=== PATIENT | male | born 1955 | race Caucasian/White ===

== ENCOUNTER 2017-01-02 10:50 | Emergency (ER) | payer OTHER ==
[~2017-01-02] VITALS: Ht 177.8 cm; Wt 56.9 kg
[~2017-01-02 10:50] MED LIST: ASPI81TA2 PO; ATOR80TA76 PO; INSU100C14 SQ; INSU100V12 SQ; OMEP-122 PO
[2017-01-02 10:52] VITALS: Ht 177.8 cm; Wt 56.9 kg
--- OUTSIDE RECORDS SUMMARY | 2017-01-02 10:55 | XMS REPORT | Continuity of Care Document ---
Author Author [facility] Organization [facility] Address Unknown Phone Unavailable Support Name Relationship Address Phone KRISTINEJOANNE QUEZADA Caregiver [address] [place] [address] Unavailable WILLIAM PETERSON Next Of Kin [address] [place] [address] Insurance Providers Guarantor Valente Peterson Address [address] [place] [address] Email DENIED10-28-16 Payer [facility] Policy Number [id number] Subscriber's Name Valente Peterson Relationship 19 Self Chief Complaint and Reason for Visit Chief Complaint Dizzy Reason for Visit Orthostatic hypotension Problems Past Problems Medical Problem Onset Date Dizziness Unknown Orthostatic hypotension Unknown Medications Current Home Medications Medication Dose Units Route Directions Days Qty Instructions Start Date Aspirin 81 Mg Tab.chew 81 Mg Oral Daily for Cad 100 10/28/16 Atorvastatin Calcium 80 Mg Tablet 1 Tab Oral Bedtime 10/27/16 Insulin Detemir (Levemir) 100 Unit/Ml Inj 20 Unit Sub-Q Qd Insulin Lispro (Humalog) 100 Unit/1 Ml Cartridge 9 Unit Sub-Q Twice A Day 10/27/16 Omeprazole 20 Mg Tablet.dr 20 Mg Oral Before Breakfast Take 1 tablet , by mouth, one time a day with breakfast. 10/27/16 Past Home Medications Medication Directions Ordered Status Lisinopril 20 Mg Tablet, 30 Mg Oral Daily for Hypertension 10/27/16 Discontinued Social History Social History Problem Response Recorded Date/Time Onset Date Status Hx Substance Use No 10/28/2016 4:10pm Not Applicable Not Applicable Hx Alcohol Use No 10/28/2016 4:10pm Not Applicable Not Applicable Has the pt used tobacco in the last 12 months Yes 10/27/2016 6:20pm Not Applicable Not Applicable Query Response Start Date Stop Date Smoking Status Unknown if ever smoked Hospital Discharge Instructions No hospital discharge instructions. Plan of Care Discharge Date 10/28/16 6:00pm Disposition 01 DISCHARGED HOME, SELF-CARE Condition at Discharge Stable Instructions/Education Provided Hypotension (ED) Prescriptions See Medication Section Additional Instructions/Education Continue to hold the Lisinopril. Make sure that you are drinking plenty of fluids at home. I do want you to follow up with the [facility] this week for with Dr Bentley with cardiology. His office number is [phone]. Care Plan and Goals Physician Care Plan Problem:Hypotension Goal: Follow up with primary care provider Instructions: Take medications and follow care plan as discussed/written Functional Status No functional status results. Allergies, Adverse Reactions, Alerts Allergen Type Severity Reaction Status Last Updated No Known Drug Allergies Allergy Unknown Active 10/28/16 Immunizations Query Response on File Recorded Date/Time Hx Influenza Vaccination N NOT THIS YEAR 10/27/16 6:20pm Hx Pneumococcal Vaccination No 10/27/16 6:20pm Hx Influenza Vaccination N NOT THIS YEAR 10/27/16 6:20pm Vital Signs Acute Vital Signs Vital Response Date/Time Temperature (Fahrenheit) 98.8 deg F (96.8 - 99.1) 10/28/2016 6:04pm Temperature (Calculated Celsius) 37.20297 degrees C (36.0 - 37.3) 10/28/2016 6:04pm Pulse Rate (adult) 52 bpm (60 - 100) 10/28/2016 6:04pm Respiratory Rate 14 breaths/min (10 - 20) 10/28/2016 6:04pm O2 Sat by Pulse Oximetry 96 % (90 - 100) 10/28/2016 6:04pm Oxygen Delivery Method Room Air 10/28/2016 8:05am Blood Pressure 130/63 mm Hg 10/28/2016 6:04pm Blood Pressure Source Automatic Cuff 10/28/2016 8:05am Height (Feet) 5 feet 10/28/2016 3:50pm Height (Inches) 10.00 inches 10/28/2016 3:50pm Weight (Kilograms) 67.300 kg 10/28/2016 3:50pm Body Mass Index (BMI) 21.0 10/28/2016 3:50pm Results Laboratory Results Test Name Result Units Flags Reference Collection Date/Time Result Date/ Time Comments Prothromb Time International Ratio 1.09 H 0.76-1.04 10/27/2016 2:48pm 10/27/2016 5:34pm THERAPUTIC RANGE=2.00-3.00 FOR ANTI-THROMBOSIS THERAPUTIC RANGE=2.50-3.50 FOR IMPLANTED VALVE D-Dimer < 150 NG/ML 0-230 10/27/2016 8:11pm 10/27/2016 9:11pm <230 NG/ ML D-DU=PRESUMPTIVE NEGATIVE FOR PE OR DVT >230 NG/ML D-DU=ADDITIONAL EVAL FOR PE OR DVT RECOMMENDED Total Bilirubin 0.30 MG/DL 0.20-1.30 10/28/2016 4:44am 10/28/2016 5: 40am Alkaline Phosphatase 63 U/L 38-126 10/28/2016 4:44am 10/28/2016 5:40am Total Protein 5.9 G/DL L 6.3-8.2 10/28/2016 4:44am 10/28/2016 5:40am Albumin 3.3 G/DL L 3.5-5.0 10/28/2016 4:44am 10/28/2016 5:40am Globulin 2.6 G/DL 2.4-3.6 10/28/2016 4:44am 10/28/2016 5:40am Albumin/Globulin Ratio 1.3 RATIO 1.1-2.2 10/28/2016 4:44am 10/28/2016 5 :40am Aspartate Amino Transf (AST/SGOT) 13 U/L L 17-59 10/28/2016 4:44am 10/28 5:40am Alanine Aminotransferase (ALT/SGPT) 29 U/L 21-72 10/28/2016 4:44am 5:40am Cholesterol Level 116 MG/DL L 132-199 10/28/2016 4:44am 10/28/2016 5: 38am Triglycerides Level 118 MG/DL 40-160 10/28/2016 4:44am 10/28/2016 5: 38am HDL Cholesterol Direct 26 MG/DL L 40-60 10/28/2016 4:44am 10/28/2016 5: 38am LDL Cholesterol, Calculated 66.4 66-159 10/28/2016 4:44am 10/28/2016 5:38am VLDL Cholesterol 23.6 MG/DL 0-28 10/28/2016 4:44am 10/28/2016 5:38am Cholesterol/HDL Ratio 4.5 RATIO 0-5.0 10/28/2016 4:44am 10/28/2016 5: 38am Magnesium Level 2.1 MG/DL 1.6-2.3 10/28/2016 4:44am 10/28/2016 5:40am Hemoglobin A1c 12.6 % H 6.1-7.9 10/28/2016 4:44am 10/28/2016 6:24am < 6.0 NON-DIABETIC RANGE 6.1-7.9 [employer] [employer] [facility] TARGET RANGE >8.0 ACTION SUGGESTED White Blood Count 12.0 T/MM3 H 4.5-11.0 10/28/2016 4:33pm 10/28/2016 4: 41pm Red Blood Count 4.28 M/MM3 L 4.50-5.90 10/28/2016 4:33pm 10/28/2016 4: 41pm Hemoglobin 12.2 GM/DL D L 13.5-17.5 10/28/2016 4:33pm 10/28/2016 4:41pm Hematocrit 37.3 % D L 41-53 10/28/2016 4:33pm 10/28/2016 4:41pm Mean Corpuscular Volume 87.1 UM3 80-100 10/28/2016 4:33pm 10/28/2016 4: 41pm Mean Corpuscular Hemoglobin 28.5 UUG 26-34 10/28/2016 4:33pm 2016 4:41pm Mean Corpuscular Hemoglobin Concent 32.7 GM/DL 31-37 10/28/2016 4:33pm 10/28/2016 4:41pm RDW Standard Deviation 43.9 FL 36.9-50.2 10/28/2016 4:33pm 10/28/2016 4 :41pm Platelet Count 263 T/MM3 130-400 10/28/2016 4:33pm 10/28/2016 4:41pm Mean Platelet Volume 10.6 UM3 9.4-12.4 10/28/2016 4:33pm 10/28/2016 4: 41pm Neutrophils (%) (Auto) 68.1 % H 33-66 10/28/2016 4:33pm 10/28/2016 4: 41pm Lymphocytes (%) (Auto) 20.0 % L 23-45 10/28/2016 4:33pm 10/28/2016 4: 41pm Monocytes (%) (Auto) 8.7 % 0-9.0 10/28/2016 4:33pm 10/28/2016 4:41pm Eosinophils (%) (Auto) 2.5 % 0-4 10/28/2016 4:33pm 10/28/2016 4:41pm Basophils (%) (Auto) 0.5 % 0-2 10/28/2016 4:33pm 10/28/2016 4:41pm Immature Granulocyte % (Auto) 0.2 % 0.0-0.5 10/28/2016 4:332016 4:41pm Absolute Neutrophils (auto) 8.2 T/MM3 H 1.8-7.7 10/28/2016 4:33pm 2016 4:41pm Absolute Lymphocytes (auto) 2.4 T/MM3 1-4.8 10/28/2016 4:33pm 2016 4:41pm Absolute Monocytes (auto) 1.0 T/MM3 H 0-0.8 10/28/2016 4:332016 4:41pm Absolute Eosinophils (auto) 0.3 T/MM3 0-0.5 10/28/2016 4:33pm 2016 4:41pm Absolute Basophils (auto) 0.1 T/MM3 0-0.2 10/28/2016 4:pm 10/28/2016 4:41pm Absolute Immature Granulocyte (auto 0.03 T/MM3 0.00-0.03 10/28/2016 4: 33pm 10/28/2016 4:41pm Icterus Index < 2 0-7 10/28/2016 4:10/28/2016 4:47pm Chemistry Specimen Hemolysis < 15 0-25 10/28/2016 4:33pm 10/28/2016 4 :47pm 0-25: Specimen Exhibited No Hemolysis. Turbidity < 20 0-20 10/28/2016 4:33pm 10/28/2016 4:47pm Sodium Level 135 MEQ/L 134-144 10/28/2016 4:33pm 10/28/2016 4:47pm Potassium Level 4.4 MEQ/L 3.6-5 10/28/2016 4:33pm 10/28/2016 4:47pm Chloride Level 102 MEQ/L 98-107 10/28/2016 4:33pm 10/28/2016 4:47pm Carbon Dioxide Level 27 MEQ/L -10/28/2016 4:33pm 10/28/2016 4: 47pm Anion Gap 6 MEQ/L 5-15 10/28/2016 4:33pm 10/28/2016 4:47pm Blood Urea Nitrogen 20.0 MG/DL 9-10/28/2016 4:33pm 10/28/2016 4: 47pm Creatinine 0.7 MG/DL L 0.8-1.5 10/28/2016 4:33pm 10/28/2016 4:47pm BUN/Creatinine Ratio 29 RATIO H 6-10/28/2016 4:33pm 10/28/2016 4: 47pm Glomerular Filtration Rate Calc 115 10/28/2016 4:33pm 10/28/2016 4: 47pm Glucose Level 367 MG/DL H 75-110 10/28/2016 4:33pm 10/28/2016 4:47pm Calculated Osmolality 278 MOSM/KG 261-280 10/28/2016 4:33pm 10/28/2016 4:47pm Calcium Level 8.8 MG/DL 8.4-10.2 10/28/2016 4:33pm 10/28/2016 4:47pm Troponin I < 0.012 ng/ml D 0-0.12 10/28/2016 4:33pm 10/28/2016 5:01pm Troponin values with a difference of 55% increase from orginal troponin value represent a true biological DELTA value. (%increase Calc=Orginal Troponin value, divided by subsequent Troponin value, multiplied by 100) Glucometer 351 mg/dL H 75-110 10/28/2016 4:13pm 10/28/2016 4:16pm Procedures No known history of procedures. Encounters Encounter Location Arrival/Admit Date Discharge/Depart Date Attending Provider Departed Emergency Room [facility] 10/28/16 3:48pm 10/28/16 6: 00pm JOANNE CARMONA DO Discharged Inpatient (obs) [facility] 10/27/16 4:52pm 10/28/16 3: 25pm STEPHANIE MARCELO MD Recent Diagnosis
--- OUTSIDE RECORDS SUMMARY | 2017-01-02 10:57 | XMS REPORT | Continuity of Care Document ---
Author Author [facility] Organization [facility] Address Unknown Phone Unavailable Allergies Active Description Code Type Severity Reaction Onset Reported/Identified Relationship to Patient Clinical Status Yes No Known Medication Allergies NKMA N/A N/A 09/25/2014 Yes No Known Medication Allergies NKMA N/A N/A 09/25/2014 Yes No Known Allergies No Known Allergies Drug Allergy Unknown N/A 02/26/2015 Yes Seafood egg- containing compound Medium N/A 03/28/2015 Yes Seafood 69076 Medium N/A 03/28/2015 Medications Problems Date Dx Coded Attending Type Code Diagnosis Diagnosed By 03/29/2015 Maurizio Yu MD Final 577.0 ACUTE PANCREATITIS 03/29/2015 Maurizio Yu MD Final 577.9 UNSPECIFIED DISEASE OF PANCREAS 03/29/2015 Maurizio Yu MD Reason V72.63 Pre-Procedural Laboratory Examination 04/11/2015 Maurizio Yu MD Admitting 789.59 04/14/2015 Maurizio Yu MD Final 250.00 Diabetes mellitus without mention of complication, type II or unspecified t 04/14/2015 Maurizio Yu MD Final 305.1 TOBACCO USE DISORDER 04/14/2015 Maurizio Yu MD Final 577.1 CHRONIC PANCREATITIS 04/14/2015 Maurizio Yu MD Admitting 577.9 UNSPECIFIED DISEASE OF PANCREAS 04/14/2015 Maurizio Yu MD Final V58.67 Long-Term (Current) Use of Insulin 04/14/2015 Maurizio Yu MD Final V64.41 Laparoscopic surgical procedure converted to open procedure 04/19/2015 Maurizio Yu MD Final 250.00 Diabetes mellitus without mention of complication, type II or unspecified t 04/19/2015 Maurizio Yu MD Final 305.1 TOBACCO USE DISORDER 04/19/2015 Maurizio Yu MD Final 338.18 Other acute postoperative pain 04/19/2015 Maurizio Yu MD Final 789.00 ABDOMINAL PAIN, UNSPECIFIED SITE 04/19/2015 Maurizio Yu MD Reason 789.59 Other ascites 04/19/2015 Maurizio Yu MD Final V58.67 Long-Term (Current) Use of Insulin 05/17/2015 Alejandro Daigle MD Final 250.00 Diabetes mellitus without mention of complication, type II or unspecified t 05/17/2015 Alejandro Daigle MD Reason 723.1 CERVICALGIA 05/17/2015 Alejandro Daigle MD Final 728.85 SPASM OF MUSCLE 05/17/2015 Alejandro Daigle MD Final 840.8 SPRAIN OF OTHER SPECIFIED SITES OF SHOULDER AND UPPER ARM 05/17/2015 Alejandro Daigle MD Final E849.0 HOME ACCIDENTS 05/17/2015 Alejandro Daigle MD Final E927.0 Overexertion from sudden strenuous movement Procedures Code Description Performed By Performed On 45.13 OTHER ENDOSCOPY OF INTEST Jimmie Chris MD 02/28/2015 88.74 DX ULTRASOUND-DIGESTIVE Jimmie Chris MD 02/28/2015 17.42 Laparoscopic robotic assisted procedure 04/03/2015 Results Test Result Range GLUCOSE (POC) - 02/28/15 11:44 GLUCOSE (POC) 305 mg/dL 70-99 CBC - 02/28/15 11:47 MEAN CELL HGB 29.2 pg 27.0-33.0 MEAN CELL HGB CONCENTRATION 33.1 g/dL 32.0-37.0 MEAN CELL VOLUME 88.3 fl 80.0-100.0 RED BLOOD CELL 4.89 m/cumm 4.00-6.00 RED CELL DISTRIBUTION WIDTH 13.9 % 11.0- 15.6 WHITE BLOOD CELL 8.4 k/cumm 5.0-10.0 HEMOGLOBIN 14.3 gm/dL 14.0-18.0 HEMATOCRIT 43.2 % 40.0-54.0 PLATELET COUNT 179 k/cumm 150-400 PROTHROMBIN TIME WITH INR - 02/28/15 11:47 INTERNATIONAL NORMAL RATIO 1.0 0.9-1.1 PROTHROMBIN TIME 11.5 sec 9.3-12.2 Encounters ACCT No. Visit Date/Time Discharge Status Pt. Type Provider Facility Loc./Unit Complaint [id number] 02/28/2015 10:35:00 2014 17:08:00 DIS Outpatient Dot RADER, Jimmie Heaton [facility] [place]
--- OUTSIDE RECORDS SUMMARY | 2017-01-02 10:57 | XMS REPORT | Continuity of Care Document ---
Author Author [facility] Organization [facility] Address Unknown Phone Unavailable Support Name Relationship Address Phone KRISTINE JOANNE Caregiver [address] [address] Unavailable WILLIAM PETERSON Next Of Kin [address] [place] [address] Insurance Providers Guarantor Valente Peterson Address [address] [place] [address] Email DENIED10-27-16 Payer [facility] Policy Number [id number] Subscriber's Name Valente Peterson Relationship 18 Self Problems Past Problems Medical Problem Onset Date Dizziness Unknown Medications Current Home Medications Medication Dose [...] Twice A Day 10/27/16 Omeprazole 20 Mg Tablet. 20 Mg Oral Before Breakfast Take 1 [...] Unknown if ever smoked Hospital Discharge Instructions Current inpatient/outpatient. Discharge instructions are currently unavailable. Plan of Care Current inpatient/outpatient. The plan of care is currently unavailable Functional Status No functional status results. Allergies, Adverse Reactions, Alerts Allergen Type Severity Reaction Status Last Updated No Known Drug Allergies Allergy Unknown Active 10/27/16 Immunizations Query Response on File Recorded Date/Time Hx Influenza Vaccination N NOT THIS YEAR 10/27/16 6:20pm Hx Pneumococcal Vaccination No 10/27/16 6:20pm Hx Influenza Vaccination N NOT THIS YEAR 10/27/16 6:20pm Vital Signs Acute Vital Signs Vital Response Date/Time Temperature (Fahrenheit) 97.2 deg F (96.8 - 99.1) 10/28/2016 8:05am Temperature (Calculated Celsius) 36.28529 degrees C (36.0 - 37.3) 10/28/2016 8:05am Pulse Rate (adult) 66 bpm (60 - 100) 10/28/2016 10:27am Respiratory Rate 18 breaths/min (10 - 20) 10/28/2016 8:05am O2 Sat by Pulse Oximetry 95 % (90 - 100) 10/28/2016 8:05am Oxygen Delivery Method Room Air 10/28/2016 8:05am Blood Pressure 95/58 mm Hg 10/28/2016 10:27am Blood Pressure Source Automatic Cuff 10/28/2016 8:05am Height (Feet) 5 feet 10/28/2016 2:43pm Height (Inches) 10.00 inches 10/28/2016 2:43pm Weight (Kilograms) 64.500 kg 10/28/2016 10:07am Body Mass Index (BMI) 20.1 10/27/2016 7:14pm Results Laboratory Results Test Name Result Units Flags Reference Collection Date/Time Result Date/ Time Comments White Blood Count 10.1 T/MM3 4.5-11.0 10/27/2016 2:48pm 10/27/2016 3: 53pm Red Blood Count 5.15 M/MM3 4.50-5.90 10/27/2016 2:48pm 10/27/2016 3: 53pm Hemoglobin 14.7 GM/DL 13.5-17.5 10/27/2016 2:48pm 10/27/2016 3:53pm Hematocrit 44.7 % 41-53 10/27/2016 2:48pm 10/27/2016 3:53pm Mean Corpuscular Volume 86.8 UM3 80-100 10/27/2016 2:48pm 10/27/2016 3: 53pm Mean Corpuscular Hemoglobin 28.5 UUG 26-34 10/27/2016 2:48pm 2016 3:53pm Mean Corpuscular Hemoglobin Concent 32.9 GM/DL 31-37 10/27/2016 2:48pm 10/27/2016 3:53pm RDW Standard Deviation 45.9 FL 36.9-50.2 10/27/2016 2:48pm 10/27/2016 3 :53pm Platelet Count 314 T/MM3 130-400 10/27/2016 2:48pm 10/27/2016 3:53pm Mean Platelet Volume 11.5 UM3 9.4-12.4 10/27/2016 2:48pm 10/27/2016 3: 53pm Neutrophils (%) (Auto) 66.2 % H 33-66 10/27/2016 2:48pm 10/27/2016 3: 53pm Lymphocytes (%) (Auto) 22.0 % L 23-45 10/27/2016 2:48pm 10/27/2016 3: 53pm Monocytes (%) (Auto) 8.8 % 0-9.0 10/27/2016 2:48pm 10/27/2016 3:53pm Eosinophils (%) (Auto) 2.2 % 0-4 10/27/2016 2:48pm 10/27/2016 3:53pm Basophils (%) (Auto) 0.6 % 0-2 10/27/2016 2:48pm 10/27/2016 3:53pm Immature Granulocyte % (Auto) 0.2 % 0.0-0.5 10/27/2016 2:48pm 2016 3:53pm Absolute Neutrophils (auto) 6.7 T/MM3 1.8-7.7 10/27/2016 2:48pm 2016 3:53pm Absolute Lymphocytes (auto) 2.2 T/MM3 1-4.8 10/27/2016 2:48pm 2016 3:53pm Absolute Monocytes (auto) 0.9 T/MM3 H 0-0.8 10/27/2016 2:48pm 2016 3:53pm Absolute Eosinophils (auto) 0.2 T/MM3 0-0.5 10/27/2016 2:48pm 2016 3:53pm Absolute Basophils (auto) 0.1 T/MM3 0-0.2 10/27/2016 2:48pm 10/27/2016 3:53pm Absolute Immature Granulocyte (auto 0.02 T/MM3 0.00-0.03 10/27/2016 2: 48pm 10/27/2016 3:53pm Prothromb Time International Ratio 1.09 H 0.76-1.04 10/27/2016 2:48pm 10/27/2016 5:34pm THERAPUTIC RANGE=2.00-3.00 FOR ANTI-THROMBOSIS THERAPUTIC RANGE=2.50-3.50 FOR IMPLANTED VALVE D-Dimer < 150 NG/ML 0-230 10/27/2016 8:11pm 10/27/2016 9:11pm <230 NG/ ML D-DU=PRESUMPTIVE NEGATIVE FOR PE OR DVT >230 NG/ML D-DU=ADDITIONAL EVAL FOR PE OR DVT RECOMMENDED Icterus Index < 2 0-7 10/28/2016 4:44am 10/28/2016 5:40am Chemistry Specimen Hemolysis < 15 0-25 10/28/2016 4:44am 10/28/2016 5 :40am 0-25: Specimen Exhibited No Hemolysis. Turbidity < 20 0-20 10/28/2016 4:44am 10/28/2016 5:40am Sodium Level 140 MEQ/L 134-144 10/28/2016 4:44am 10/28/2016 5:40am Potassium Level 3.9 MEQ/L 3.6-5 10/28/2016 4:44am 10/28/2016 5:40am Chloride Level 106 MEQ/L D 98-107 10/28/2016 4:44am 10/28/2016 6:01am Carbon Dioxide Level 28 MEQ/L 22-10/28/2016 4:44am 10/28/2016 5: 40am Anion Gap 6 MEQ/L 5-15 10/28/2016 4:44am 10/28/2016 5:40am Blood Urea Nitrogen 22.0 MG/DL H 9-10/28/2016 4:44am 10/28/2016 5: 40am Creatinine 0.7 MG/DL L 0.8-1.5 10/28/2016 4:44am 10/28/2016 5:40am BUN/Creatinine Ratio 31 RATIO H 6-10/28/2016 4:44am 10/28/2016 5: 40am Glomerular Filtration Rate Calc 115 10/28/2016 4:44am 10/28/2016 5: 40am Glucose Level 125 MG/DL H 75-110 10/28/2016 4:44am 10/28/2016 5:40am Calculated Osmolality 273 MOSM/KG 261-280 10/28/2016 4:44am 10/28/2016 5:40am Calcium Level 9.4 MG/DL 8.4-10.2 10/28/2016 4:44am 10/28/2016 5:40am Total Bilirubin 0.30 MG/DL 0.20-1.30 10/28/2016 4:44am [...] RATIO 0-5.0 10/28/2016 4:44am 10/28/2016 5: 38am Troponin I 0.030 ng/ml 0-0.12 10/28/2016 4:44am 10/28/2016 5:51am Troponin values with a difference of 55% increase from orginal troponin value represent a true biological DELTA value. (%increase Calc=Orginal Troponin value, divided by subsequent Troponin value, multiplied by 100) Magnesium Level 2.1 MG/DL 1.6-2.3 10/28/2016 4:44am 10/28/2016 5:40am Hemoglobin A1c 12.6 % H 6.1-7.9 10/28/2016 4:44am 10/28/2016 6:24am < 6.0 NON-DIABETIC RANGE 6.1-7.9 [employer] TARGET RANGE >8.0 ACTION SUGGESTED Glucometer 351 mg/dL H 75-110 10/28/2016 4:13pm 10/28/2016 4:16pm Procedures No known history of procedures. Encounters Encounter Location Arrival/Admit Date Discharge/Depart Date Attending Provider Registered Emergency Room [facility] 10/28/16 3:48pm JOANNE CARMONA DO Discharged Inpatient (obs) [facility] 10/27/16 4:52pm 10/28/16 3: 25pm STEPHANIE MARCELO MD
[2017-01-02] MEDS ORDERED: ATOR40TA64 PO (11:17)
[2017-01-02] MEDS ORDERED: ASPI81TA2 PO (11:17)
[2017-01-02] MEDS ORDERED: INSU100V13 SQ (11:17)
--- OUTSIDE RECORDS SUMMARY | 2017-01-02 11:17 | XMS REPORT | Continuity of Care Document ---
Author Author [facility] Organization [facility] Address Unknown Phone Unavailable Allergies Active Description Code Type Severity Reaction Onset Reported/Identified Relationship to Patient Clinical Status Yes No Known Medication Allergies NKMA N/A N/A 09/25/2014 Yes No Known Medication Allergies NKMA N/A N/A 09/25/2014 Yes No Known Allergies No Known Allergies Drug Allergy Unknown N/A 02/26/2015 Yes Seafood egg- containing compound Medium N/A 03/28/2015 Yes Seafood 30481 Medium N/A 03/28/2015 Medications Problems Date Dx [...] type II or unspecified t 04/14/2015 Maurizio uY MD Final 305.1 TOBACCO USE DISORDER 04/14/2015 [...] Status Pt. Type Provider Facility Loc./Unit Complaint [id number] 02/28/2015 10:35:00 2014 17:08:00 DIS Outpatient Dot RADER, Jimmie Heaton [facility] [place]
[2017-01-02] MEDS ORDERED: PANT40TA27 PO (11:18)
[2017-01-02] MEDS ORDERED: METF-463 PO (11:18)
[2017-01-02] MEDS ORDERED: INSU100V8 SQ (11:18)
[2017-01-02] MEDS ORDERED: NORMAL SALINE 1,000 ML IV ONE ×2 (12:02→14:30)
[2017-01-02 12:14] LABS: BASOPHILS # (AUTO) 0.1 T/MM3 (0-0.2); BASOPHILS % (AUTO) 0.8 % (0-2); EOSINOPHILS # (AUTO) 0.2 T/MM3 (0-0.5); EOSINOPHILS % (AUTO) 1.9 % (0-4); HCT - HEMATOCRIT 41.7 % (41-53); HGB - HEMOGLOBIN 13.6 GM/DL (13.5-17.5); IMMATURE GRANULOCYTE # (AUTO) 0.04 T/MM3 (0.00-0.03); IMMATURE GRANULOCYTE % (AUTO) 0.4 % (0.0-0.5); LYMPHOCYTES # (AUTO) 1.3 T/MM3 (1-4.8); MEAN CORPUSCULAR HGB CONC(MCHC 32.6 GM/DL (31-37); MEAN CORPUSCULAR VOLUME 88.9 UM3 (80-100); MEAN PLATELET VOLUME 11.6 UM3 (9.4-12.4); MONOCYTES # (AUTO) 0.9 T/MM3 (0-0.8); MONOCYTES % (AUTO) 8.4 % (0-9.0); NEUTROPHILS #(AUTO)-ABSOLUTE 8.1 T/MM3 (1.8-7.7); NEUTROPHILS % (AUTO) 76.5 % (33-66); RED BLOOD COUNT 4.69 M/MM3 (4.50-5.90); WBC - WHITE BLOOD COUNT 10.6 T/MM3 (4.5-11.0)
[2017-01-02 12:33] LABS: BLOOD, URINE NEGATIVE (NEGATIVE); COLOR,URINE YELLOW (YELLOW); LEUKOCYTE ESTERASE ,URINE NEGATIVE (NEGATIVE); NITRITE,URINE NEGATIVE (NEGATIVE); UROBILINOGEN,URINE 0.2 EU/DL (NORMAL)
[2017-01-02 12:35] LABS: ALBUMIN 3.9 G/DL (3.5-5.0); ALBUMIN/GLOBULIN RATIO 1.4 RATIO (1.1-2.2); ALKALINE PHOSPHATASE 102 U/L (38-126); ALT (SGPT) 40 U/L (21-72); ANION GAP 18 MEQ/L (5-15); AST (SGOT) 16 U/L (17-59); BUN/CREATININE RATIO 14 RATIO (6-26); CALCIUM 9.4 MG/DL (8.4-10.2); CHLORIDE 95 MEQ/L (98-107); CO2 - CARBON DIOXIDE 30 MEQ/L (22-30); CREATININE 0.7 MG/DL (0.8-1.5); GLOMERULAR FILTRATION RATE 115; GLUCOSE 442 MG/DL (75-110); POTASSIUM 4.5 MEQ/L (3.6-5); SODIUM 143 MEQ/L (134-144); TOTAL PROTEIN 6.7 G/DL (6.3-8.2)
[2017-01-02 12:43] LABS: AMMONIA < 9 UMOL/L (9-33)
[2017-01-02] MEDS ORDERED: IOHEXOL 300 MG/ML 75ml INJECTION ONE (12:43)
[2017-01-02] MEDS ORDERED: SALINE FLUSH 10ml SYRINGE ONE (12:44)
[2017-01-02] MEDS ORDERED: NORMAL SALINE 100 ML ONE (12:44)
--- NOTE | 2017-01-02 12:45 | NUR ---
TO CT PER CART
[2017-01-02 12:47] LABS: ETHANOL <10 MG/DL (<10)
--- NOTE | 2017-01-02 12:57 | NUR ---
REPORT TO RICKY TORIBIO
[2017-01-02 13:00] LABS: THYROID STIM HORMONE-TSH 1.14 MIU/L (0.47-4.68)
--- NOTE | 2017-01-02 13:21 | DI ---
Indication: ITS.REASON: mental status change PROCEDURE: CT HEAD W/O CONTRAST: Encounter: Initial Comparison: None Technique: Axial CT images through the head were performed without contrast. Iterative Reconstruction dose reducing technique was utilized. FINDINGS: The ventricles are of normal size, shape, and contour for the patient's age. There are scattered areas of low attenuation in the white matter which most likely represent changes from chronic microvascular ischemia. The brainstem, cerebellum, and cerebral hemispheres otherwise have a normal morphology and CT attenuation. There is no evidence of midline displacement. No hemorrhage, signs of acute territorial stroke, mass effect, mass lesions, or edema is evident. The visualized portions of the skull base, midface, and calvarium demonstrate no abnormality. The paranasal sinuses are well aerated and free of significant disease. The tympanic and mastoid cavities appear normal. IMPRESSION: No acute intracranial abnormality or hemorrhage. .
--- NOTE | 2017-01-02 13:30 | NUR ---
URINE PT STANDS WITH ASSIST OF ONE AND URINATES FOR UDS.
--- NOTE | 2017-01-02 13:41 | DI ---
Indication: ITS.REASON: ms changes PROCEDURE: CT ABD/PELVIS W/CONTRAST ONLY: Encounter: Initial Comparison: None Technique: Axial CT images were performed through the abdomen and pelvis after the administration of intravenous contrast. Coronal and sagittal two-dimensional reformats. Automated Exposure Control and Iterative Reconstruction dose reducing techniques were utilized. Contrast: Omnipaque 300 67 mL Findings: The lung bases are clear apart from a calcified granuloma in the lingula. The liver is unremarkable. The gallbladder appears normal. The spleen is absent. The pancreas is abnormal with a cystic lesion with calcifications associated with the pancreatic tail area measuring 3 cm in size. Pancreas is difficult to differentiate from the adjacent small bowel loops. Adrenal glands show no focal masses. The kidneys are normal. Evaluation is limited due to the lack of intra-abdominal fat. No abdominal adenopathy. Large left-sided bladder diverticulum measuring 4 cm in diameter. No significant free fluid. No evidence of a bowel obstruction. Moderate to large amount of stool throughout the colon. Bone windows show degenerative changes in the spine. Bladder is significantly distended. Impression: 1. Distended bladder may represent acute urinary retention or bladder outlet obstruction. Patient may benefit from a Juarez catheter. 2. Cystic lesion associated with the pancreatic tail could represent a pancreatic pseudocyst. .
--- NOTE | 2017-01-02 13:43 | DI ---
INDICATION: ITS.REASON: mental status change PROCEDURE: CHEST 2-VIEWS UPRIGHT (PA \T\ LAT) Encounter: Initial COMPARISON: October 27, 2016 FINDINGS: The lungs are clear without evidence of focal abnormal airspace opacity. There is no pleural effusion or pneumothorax. Probable skin fold seen in the left chest. The heart size, mediastinal contours and pulmonary vascularity are within normal limits. IMPRESSION: No acute cardiopulmonary disease. .
--- NOTE | 2017-01-02 13:49 | ERPDOC ---
Departure Disposition Decision Date: Jan 02, 2017 Disposition Decision Time: 15:50 Disposition: 01 DISCHARGED HOME, SELF-CARE Impression Impression Impression: Primary Impression: Hyperglycemia Additional Impressions: Pancreatic cancer Mental status change resolved Severity: Moderate Condition: Improved Seen By: Physician only Patient Instructions: Type 2 Diabetes in Adults (DC) Problems/Meds/Labs Reviewed?: Yes Medications reviewed and manag: Yes Additional Instructions: Please continue to work with case management to help you find a place to stay and to establish healthcare. Do not drive if you're feeling confused. Follow up care ordered?: Yes Mental Status: Alert, Oriented [facility] - General Medical General Chief Complaint: General Stated Complaint: OVERDOSE Time Seen by Provider: 11:07 HPI - General Medical Initial Comments 61-year-old male presents with mental status changes. He was found at a truck stop in his vehicle. He was initially not responsive, brought into ED and is speaking normally. 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 He has lost weight from 250 pounds down to 135 pounds. He also states he has no place to sleep need some help getting into a senior living. Denies using any drugs, or drinking alcohol. He is diabetic, has been so since his surgery to remove the spleen. He uses insulin, his sugars have been to 50 or higher and are greater than 400 at this time. Allergies: Coded Allergies: No Known Drug Allergies (Verified Allergy, Unknown, 01/02/17) Past History Patient Surgical History 1. Umbilical hernia 2. Tonsillectomy 3. Partial pancreatectomy and splenectomy 2 years ago Past Medical History Metabolic: diabetes Surgical History General: appendix Vaccines Hx Influenza Vaccination: No (NOT THIS YEAR) Hx Pneumococcal Vaccination: No Social History Substance Use Type: does not use Alcohol Intake: none Marital Status: Number of Children: 4 Current Occupational Status: employed Review of Systems Musculoskeletal General: see HPI Neurological General: see HPI All other Systems All Other Systems: Reviewed and Negative Physical Exam General Vitals and Pain First Documented Vital Signs Date Time Temp Pulse Resp B/P Pulse Ox O2 Delivery O2 Flow Rate FiO2 01/02/17 10:52 98.2 65 16 129/60 97 Room Air Weight: Kilograms: 56.900 Height (feet): 5 Height (inches): 10.00 Triage Pain Scale: Normal Exams: Head: Normocephalic w/o trauma Neck: Full range of motion, without adenopathy, JVD, bruits or thyromegaly Chest/Resp: Clear all batista, with good airflow, and symmetry bilaterally CV: Regular rate and rhythm, without murmur or gallop, Pulses 2+ all extremities, capillary refill, <2 seconds all ext., no pedal edema noted Abdomen: Bowel sounds positive, soft, non-tender, non-distended, no hepatosplenomegaly, masses or bruits noted Differential Diagnoses Considering: CVA, DKA, Encephalitis, Meningitis, Metabolic, Pneumonia, Psychosis, Seizure, TIA Progress Results/Orders Orders Procedure Category Date Status Time Ammonia LAB 01/02/17 Complete 12:02 Cmp - Comprehensive LAB 01/02/17 Complete Metabolic 12:02 Cbc W/Auto LAB 01/02/17 Complete Diff-Reflex Manual 12:02 Ethanol LAB 01/02/17 Complete 12:02 Tsh - Thyroid Stim LAB 01/02/17 Complete Hormone 12:02 D-Dimer LAB 01/02/17 Complete 12:02 Troponin I W LAB 01/02/17 Complete Hemolysis Index 12:02 Ua, Dip Wreflex LAB 01/02/17 Complete Microsc & Pillow Filler 12:02 Drug Screen LAB 01/02/17 [place] [facility] [place] Bgm (Ed) EDM 01/02/17 Transmitted 12:02 Chest, Pa & Lateral RAD 01/02/17 Resulted 12:02 Ct Head W/O Contrast CT 01/02/17 Resulted 12:02 Iv Lock (Ed Only) EDM 01/02/17 Transmitted 12:02 Normal Saline (Normal PHA 01/02/17 Complete Saline Iv) 12:02 Oxygen Administration EDM 01/02/17 Transmitted 12:02 Nothing By Mouth (Ed EDM 01/02/17 Transmitted Only) 12:02 Ct Abd/Pelvis CT 01/02/17 Resulted W/Contrast Only 12:02 Iohexol (Omnipaque) PHA 01/02/17 Complete 12:43 Normal Saline (Ns) PHA 01/02/17 Complete 12:44 Saline Flush (Iv PHA 01/02/17 Complete Flush) 12:44 Normal Saline (Normal PHA 01/02/17 In Process Saline Iv) 14:30 Lab Results Laboratory Tests Test 01/02/17 10:38 01/02/17 12:26 01/02/17 12:28 01/02/17 13:53 White Blood Count 10.6T/MM3 Red Blood Count 4.69M/MM3 Hemoglobin 13.6GM/DL Hematocrit 41.7% Mean Corpuscular Volume 88.9UM3 Mean Corpuscular Hemoglobin 29.0UUG Mean Corpuscular Hemoglobin Concent 32.6GM/DL RDW Standard Deviation 51.4FL Platelet Count 408T/MM3 Mean Platelet Volume 11.6UM3 Immature Granulocyte % (Auto) 0.4% Neutrophils (%) (Auto) 76.5% Lymphocytes (%) (Auto) 12.0% Monocytes (%) (Auto) 8.4% Eosinophils (%) (Auto) 1.9% Basophils (%) (Auto) 0.8% Absolute Immature Granulocyte (auto 0.04T/MM3 Absolute Neutrophils (auto) 8.1T/MM3 Absolute Lymphocytes (auto) 1.3T/MM3 Absolute Monocytes (auto) 0.9T/MM3 Absolute Eosinophils (auto) 0.2T/MM3 Absolute Basophils (auto) 0.1T/MM3 D-Dimer < 150NG/ML Glucometer 376mg/dL Urine Collection Type Cleancatch-midstream Urine Color Yellow Urine Turbidity Clear Urine pH 5.0 Urine Specific [place] 1.010 Urine Protein Negative Urine Glucose (UA) 3+ Urine Ketones 3+ Urine Blood Negative Urine Nitrite Negative Urine Bilirubin Negative Urine Urobilinogen 0.2EU/DL Urine Leukocyte Esterase Negative Urinalysis Comment Microscopic not ind. Turbidity < 20 Sodium Level 143MEQ/L Potassium Level 4.5MEQ/L Chloride Level 95MEQ/L Carbon Dioxide Level 30MEQ/L Anion Gap 18MEQ/L Blood Urea Nitrogen 10.0MG/DL Creatinine 0.7MG/DL Glomerular Filtration Rate Calc 115 BUN/Creatinine Ratio 14RATIO Glucose Level 442MG/DL Calculated Osmolality 293MOSM/KG Calcium Level 9.4MG/DL Total Bilirubin 0.70MG/DL Icterus Index < 2 Aspartate Amino Transf (AST/SGOT) 16U/L Alanine Aminotransferase (ALT/SGPT) 40U/L Alkaline Phosphatase 102U/L Ammonia < 9UMOL/L Troponin I < 0.012ng/ml Total Protein 6.7G/DL Albumin 3.9G/DL Globulin 2.8G/DL Albumin/Globulin Ratio 1.4RATIO Thyroid Stimulating Hormone (TSH) 1.14MIU/L Chemistry Specimen Hemolysis < 15 Alcohol, Quantitative <10MG/DL Urine Opiates Screen PositiveNG/ML Urine Oxycodone Screen NegativeNG/ML Urine Methadone Screen NegativeNG/ML Urine Propoxyphene Screen NegativeNG/ML Urine Barbiturates Screen NegativeNG/ML Urine Tricyclic Antidepressants NegativeNG/ML Urine Phencyclidine Screen NegativeNG/ML Urine Amphetamines Screen NegativeNG/ML Urine Methamphetamines Screen NegativeNG/ML Urine Benzodiazepines Screen NegativeNG/ML Urine Cocaine Screen NegativeNG/ML Urine Cannabinoids Screen NegativeNG/ML Urine Drug Screen Confirmation Sent out Urine Drug Screen Information Pending Test 01/02/17 14:08 Glucometer 310mg/dL Medications Current ED Medications Sodium Chloride (Normal Saline IV) 1,000 ml @ 500 mls/hr Q2H ONCE IV ; Start at 12:02; Stop 01/02/17 at 14:01; Status DC Iohexol 1 bottle 1 bottle STK-MED ONCE .ROUTE ; Start 01/02/17 at 12:43; Stop at 12:44; Status DC Sodium Chloride (NS) 100 ml @ As Directed STK-MED ONCE .ROUTE ; Start 01/02/17 at 12:44; Stop 01/02/17 at 12:45; Status DC Sodium Chloride 10 ml 10 ml STK-MED ONCE .ROUTE ; Start 01/02/17 at 12:44; Stop 01/02/17 at 12:45; Status DC Sodium Chloride (Normal Saline IV) 1,000 ml @ 500 mls/hr Q2H ONCE IV Last administered on 01/02/17t 14:30; Start 01/02/17 at 14:30; Stop 01/02/17 at 16:[address] abdomen does not show any current tumor, surprisingly. Labs returned appropriate, CT head is negative. Chest x-ray is also essentially negative. Patient is okay to discharge, once his sugars are controlled. Blood sugar came down from greater than 400-270 at time of discharge. He states his sugars are very rarely any lower than this. He averages 250-400. Case management was very helpful, arranging a place for him to stay at the homeless senior living, helping with clothing and getting a cab and voucher so he came back to his vehicle. 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 He states he does have medication. He will watch his blood sugars over the weekend a little bit closer. At this point is mental status has improved and he is safe to travel. MURIEL CAMARENA MD Jan 02, 2017 13:49
[2017-01-02 14:10] LABS: AMPHETAMINE SCREEN,URINE NEGATIVE; BARBITURATE SCREEN,URINE NEGATIVE; BENZODIAZEPINES SCREEN,URINE NEGATIVE; CANNABINOID SCREEN,URINE NEGATIVE; COCAINE SCREEN,URINE NEGATIVE; METHADONE SCREEN, URINE NEGATIVE; METHAMPHETAMINE SCREEN, URINE NEGATIVE; OPIATE SCREEN,URINE POSITIVE; PHENCYCLIDINE SCREEN,URINE NEGATIVE; TRICYCLIC ANTIDEPRESSANT,URINE NEGATIVE
--- NOTE | 2017-01-02 14:15 | NUR ---
STATUS ASKED PT IF HE HAS A PLACE TO STAY. PT STATES THAT HE DOES NOT HAVE A PLACE TO STAY.
--- NOTE | 2017-01-02 14:17 | NUR ---
STATUS ASKED PT ABOUT HIS SON AND PT STATES THAT HE WILL NOT COMMMENT ON THAT SUBJECT.
--- NOTE | 2017-01-02 14:25 | NUR ---
PO INTAKE SANDWICH, CHIPS AND DIET SODA PROVIDED PER DR COLBY AND PT REQUEST.
--- NOTE | 2017-01-02 14:51 | NUR ---
PHYSICIAN IN WITH PT
--- NOTE | 2017-01-02 15:07 | NUR ---
CASE MANAGEMNT IN WITH PT
--- NOTE | 2017-01-02 15:50 | NUR ---
CM CM IN TO VISIT WITH PT. HE IS ALERT AND ORIENTED. HE REPORTS THAT HE IS HOMELESS. HIS CAR IS AT [employer]. HE IS INTERESTED IN INVESTIGATING [facility] OPTIONS FOR HOUSING. CM ATTEMPTS TO CONTACT [facility] BUT HAS TO LEAVE MESSAGE FOR [place] WITH [facility] AT P#[phone] [id number]. CM TELEPHONES [facility]. THEY HAVE OPENING FOR TONIGHT. PT IS AGREEABLE TO STAYING. PER CONVERSATION WITH DR. CAMARENA, PT IS SAFE TO DRIVE OWN VEHICLE. PT IS GIVEN CAB VOUCHER FOR RIDE BACK TO HIS CAR. HE IS GIVEN ADDRESS AND PHONE NUMBER OF [facility]. HE IS GIVEN SHIRT FROM [facility].
[2017-01-02 16:05] VITALS: BP 151/69; PULSE 63; RESP 11; TEMP 98.2; O2SAT 98
[2017-01-02] MEDS ORDERED: ONDA4TAB7 PO (22:48)
[2017-01-02] MEDS ORDERED: OXYC1TAB8 PO (22:48)
--- NOTE | 2017-01-05 16:37 | NUR ---
THIS WORKER ATTEMPTED TO REACH PT AT [facility]. WAS INFORMED THAT PT LEFT THE [facility] ON 01/04/17 AND HAS NOT RETURNED. THIS WORKER LEFT MESSAGE FOR [facility]IC[facility] AT [place] ON THIS DATE [phone] EXT [phone]. ATTEMPT TO REACH PT ON THIS DATE WITH PHONE NUMBER [phone]. LEFT MESSAGE ON THIS DATE. Addendum: 01/05/17 at 1641 by KINZA SAINI Amended: Links added.
== END 2017-01-02 16:05 | disposition home or self-care (01) ==
LOC: ED 10:50
DX: R41.82 Altered mental status, unspecified (principal); E11.65 Type 2 diabetes mellitus with hyperglycemia; Z79.4 Long term (current) use of insulin; C25.9 Malignant neoplasm of pancreas, unspecified
CPT/HCPCS: 36415; 70450; 71020; 74177; 80053; 80306; 80307; 81003; 82140; 82948; 84443; 84484; 85025; 85379; 96360; 96361; 99283; J7030; J7050; Q9967

== ENCOUNTER 2017-01-02 20:32 | Emergency (ER) | payer OTHER ==
[~2017-01-02] VITALS: Ht 177.8 cm; Wt 61.7 kg
[~2017-01-02 20:32] MED LIST changes: +ATOR40TA64 PO; +INSU100V13 SQ; +INSU100V8 SQ; +METF-463 PO; +PANT40TA27 PO
--- OUTSIDE RECORDS SUMMARY | 2017-01-02 20:37 | XMS REPORT | Continuity of Care Document ---
Author Author [facility] Organization [facility] Address Unknown Phone Unavailable Support Name Relationship Address Phone MURIEL CAMARENA MD Caregiver [address] [place] [phone] Unavailable WILLIAM PETERSON Next Of Kin [address] [place] [address] Insurance Providers Guarantor Valente Peterson Address [address] [place] [address] Email 01-02-17 Payer [facility] Policy Number [id number] Subscriber's Name Valente Peterson Relationship 18 Self Chief Complaint and Reason for Visit Chief Complaint General Reason for Visit Hyperglycemia Pancreatic cancer Mental status change resolved Problems Active Problems Medical Problem Onset Date Status CAD (coronary artery disease) Unknown DJD (degenerative joint disease) Unknown DM (diabetes mellitus) Unknown HTN (hypertension) Unknown Hyperlipidemia Unknown Past Problems Medical Problem Onset Date Dizziness Unknown Hyperglycemia Unknown Mental status change resolved Unknown Orthostatic hypotension Unknown Pancreatic cancer Unknown Medications Current Home Medications Medication Dose Units Route Directions Days Qty Instructions Start Date Aspirin 81 Mg Tab.chew 81 Mg Oral Daily 01/02/17 Atorvastatin Calcium 40 Mg Tablet 40 Mg Oral Bedtime 01/02/17 Insulin Aspart (Novolog) 100 Unit/Ml Inj 9 Unit Sub-Q Three Times Daily With Meals 01/02/17 Insulin Glargine,Hum.rec.anlog (Lantus) 100 Unit/Ml Inj 20 Unit Sub-Q Twice A Day 01/02/17 Metformin Hcl (Metformin Hcl Er) 1,000 Mg Tab.er.24 1,000 Mg Oral Daily 01/02/17 Pantoprazole Sodium 40 Mg Tablet.dr 40 Mg Oral Before Breakfast 01/02/17 Past Home Medications Medication Directions Ordered Status Lisinopril 20 Mg Tablet, 30 Mg Oral Daily for Hypertension 10/27/16 Discontinued Social History Social History Problem Response Recorded Date/Time Onset Date Status Hx Substance Use No 01/02/2017 11:07am Not Applicable Not Applicable Hx Alcohol Use No 01/02/2017 11:07am Not Applicable Not Applicable Has the pt used tobacco in the last 12 months Yes 10/27/2016 6:20pm Not Applicable Not Applicable Query Response Start Date Stop Date Smoking Status Current every day smoker Hospital Discharge Instructions No hospital discharge instructions. Plan of Care Discharge Date 01/02/17 4:05pm Disposition 01 DISCHARGED HOME, SELF-CARE Condition at Discharge Improved Instructions/Education Provided Type 2 Diabetes in Adults (DC) Prescriptions See Medication Section Additional Instructions/Education Please continue to work with case management to help you find a place to stay and to establish healthcare. Do not drive if you're feeling confused. Functional Status No functional status results. Allergies, Adverse Reactions, Alerts Allergen Type Severity Reaction Status Last Updated No Known Drug Allergies Allergy Unknown Active 01/02/17 Immunizations Query Response on File Recorded Date/Time Hx Influenza Vaccination N NOT THIS YEAR 10/27/16 6:20pm Hx Pneumococcal Vaccination No 10/27/16 6:20pm Hx Influenza Vaccination N NOT THIS YEAR 10/27/16 6:20pm Vital Signs Acute Vital Signs Vital Response Date/Time Temperature (Fahrenheit) 98.2 deg F (96.8 - 99.1) 01/02/2017 2:05pm Temperature (Calculated Celsius) 36.60177 degrees C (36.0 - 37.3) 01/02/2017 2:05pm Pulse Rate (adult) 63 bpm (60 - 100) 01/02/2017 3:04pm Respiratory Rate 11 breaths/min (10 - 20) 01/02/2017 2:05pm O2 Sat by Pulse Oximetry 98 % (90 - 100) 01/02/2017 3:04pm Oxygen Delivery Method Room Air 10/28/2016 8:05am Blood Pressure 151/69 mm Hg 01/02/2017 3:04pm Blood Pressure Source Automatic Cuff 10/28/2016 8:05am Height (Feet) 5 feet 01/02/2017 10:52am Height (Inches) 10.00 inches 01/02/2017 10:52am Weight (Kilograms) 56.900 kg 01/02/2017 10:52am Body Mass Index (BMI) 17.0 01/02/2017 10:52am Results Laboratory Results Test Name Result Units Flags Reference Collection Date/Time Result Date/ Time Comments Prothromb Time International Ratio 1.09 H 0.76-1.04 10/27/2016 2:48pm 10/27/2016 5:34pm THERAPUTIC RANGE=2.00-3.00 FOR ANTI-THROMBOSIS THERAPUTIC RANGE=2.50-3.50 FOR IMPLANTED VALVE Cholesterol Level 116 MG/DL L 132-199 10/28/2016 [...] 10/28/2016 6:24am < 6.0 NON-DIABETIC RANGE 6.1-7.9 [facility] TARGET RANGE >8.0 ACTION SUGGESTED White Blood Count 10.6 T/MM3 4.5-11.0 01/02/2017 10:38am 01/02/2017 12: 14pm Red Blood Count 4.69 M/MM3 4.50-5.90 01/02/2017 10:38am 01/02/2017 12: 14pm Hemoglobin 13.6 GM/DL 13.5-17.5 01/02/2017 10:38am 01/02/2017 12:14pm Hematocrit 41.7 % 41-53 01/02/2017 10:38am 01/02/2017 12:14pm Mean Corpuscular Volume 88.9 UM3 80-100 01/02/2017 10:38am 01/02/2017 12:14pm Mean Corpuscular Hemoglobin 29.0 UUG 26-34 01/02/2017 10:38am 2016 12:14pm Mean Corpuscular Hemoglobin Concent 32.6 GM/DL 31-37 01/02/2017 10:01/02/2017 12:14pm RDW Standard Deviation 51.4 FL H 36.9-50.2 01/02/2017 10:2016 12:14pm Platelet Count 408 T/MM3 H 130-400 01/02/2017 10:01/02/2017 12: 14pm Mean Platelet Volume 11.6 UM3 9.4-12.4 01/02/2017 10:01/02/2017 12 :14pm Neutrophils (%) (Auto) 76.5 % H 33-66 01/02/2017 10:01/02/2017 12: 14pm Lymphocytes (%) (Auto) 12.0 % L 23-45 01/02/2017 10:01/02/2017 12: 14pm Monocytes (%) (Auto) 8.4 % 0-9.0 01/02/2017 10:01/02/2017 12:14pm Eosinophils (%) (Auto) 1.9 % 0-4 01/02/2017 10:01/02/2017 12:14pm Basophils (%) (Auto) 0.8 % 0-2 01/02/2017 10:01/02/2017 12:14pm Immature Granulocyte % (Auto) 0.4 % 0.0-0.5 01/02/2017 10:2016 12:14pm Absolute Neutrophils (auto) 8.1 T/MM3 H 1.8-7.7 01/02/2017 10:01/02 12:14pm Absolute Lymphocytes (auto) 1.3 T/MM3 1-4.8 01/02/2017 10:2016 12:14pm Absolute Monocytes (auto) 0.9 T/MM3 H 0-0.8 01/02/2017 10:2016 12:14pm Absolute Eosinophils (auto) 0.2 T/MM3 0-0.5 01/02/2017 10:2016 12:14pm Absolute Basophils (auto) 0.1 T/MM3 0-0.2 01/02/2017 10:2016 12:14pm Absolute Immature Granulocyte (auto 0.04 T/MM3 H 0.00-0.03 01/02/2017 10: 38am 01/02/2017 12:14pm D-Dimer < 150 NG/ML 0-230 01/02/2017 10:38am 01/02/2017 12:21pm <230 NG/ML D-DU=PRESUMPTIVE NEGATIVE FOR PE OR DVT >230 NG/ML D-DU=ADDITIONAL EVAL FOR PE OR DVT RECOMMENDED Icterus Index < 2 0-7 01/02/2017 12:2801/02/2017 12:35pm Chemistry Specimen Hemolysis < 15 0-25 01/02/2017 12:2801/02/2017 12:35pm 0-25: Specimen Exhibited No Hemolysis. Turbidity < 20 0-20 01/02/2017 12:2801/02/2017 12:35pm Sodium Level 143 MEQ/L 134-144 01/02/2017 12:2801/02/2017 12:35pm Potassium Level 4.5 MEQ/L 3.6-5 01/02/2017 12:2801/02/2017 12:35pm Chloride Level 95 MEQ/L L 98-107 01/02/2017 12:2801/02/2017 12:35pm Carbon Dioxide Level 30 MEQ/L 22-30 01/02/2017 12:01/02/2017 12: 35pm Anion Gap 18 MEQ/L H 5-15 01/02/2017 12:2801/02/2017 12:35pm Blood Urea Nitrogen 10.0 MG/DL 9-20 01/02/2017 12:01/02/2017 12: 35pm Creatinine 0.7 MG/DL L 0.8-1.5 01/02/2017 12:2801/02/2017 12:35pm BUN/Creatinine Ratio 14 RATIO 6-26 01/02/2017 12:2801/02/2017 12: 35pm Glomerular Filtration Rate Calc 115 01/02/2017 12:2801/02/2017 12:35pm Glucose Level 442 MG/DL H 75-110 01/02/2017 12:01/02/2017 12:35pm Calculated Osmolality 293 MOSM/KG H 261-280 01/02/2017 12:2016 12:35pm Calcium Level 9.4 MG/DL 8.4-10.2 01/02/2017 12:01/02/2017 12:35pm Total Bilirubin 0.70 MG/DL 0.20-1.30 01/02/2017 12:01/02/2017 12: 35pm Alkaline Phosphatase 102 U/L 38-126 01/02/2017 12:01/02/2017 12: 35pm Total Protein 6.7 G/DL 6.3-8.2 01/02/2017 12:01/02/2017 12:35pm Albumin 3.9 G/DL 3.5-5.0 01/02/2017 12:01/02/2017 12:35pm Globulin 2.8 G/DL 2.4-3.6 01/02/2017 12:01/02/2017 12:35pm Albumin/Globulin Ratio 1.4 RATIO 1.1-2.2 01/02/2017 12:01/02/2017 12:35pm Aspartate Amino Transf (AST/SGOT) 16 U/L L 17-59 01/02/2017 12: 12:35pm Alanine Aminotransferase (ALT/SGPT) 40 U/L 21-72 01/02/2017 12:pm 12:35pm Troponin I < 0.012 ng/ml 0-0.12 01/02/2017 12:01/02/2017 12:35pm Troponin values with a difference of 55% increase from orginal troponin value represent a true biological DELTA value. (%increase Calc=Orginal Troponin value, divided by subsequent Troponin value, multiplied by 100) Ammonia < 9 UMOL/L L 9-33 01/02/2017 12:01/02/2017 12:43pm Alcohol, Quantitative <10 MG/DL <10 01/02/2017 12:01/02/2017 12: 47pm Thyroid Stimulating Hormone (TSH) 1.14 MIU/L 0.47-4.68 01/02/2017 12: 01/02/2017 1:00pm Urine Collection Type CLEANCATCH-MIDSTREAM 01/02/2017 12:01/02 12:33pm Urine Color YELLOW YELLOW 01/02/2017 12:01/02/2017 12:33pm Urine Turbidity CLEAR CLEAR 01/02/2017 12:28pm 01/02/2017 12:33pm Urine Specific [place] 1.010 L 1.015-1.025 01/02/2017 12:28pm 2016 12:33pm Urine pH 5.0 5.0-8.0 01/02/2017 12:28pm 01/02/2017 12:33pm Urine Leukocyte Esterase NEGATIVE NEGATIVE 01/02/2017 12:28pm 2016 12:33pm Urine Nitrite NEGATIVE NEGATIVE 01/02/2017 12:28pm 01/02/2017 12: 33pm Urine Protein NEGATIVE NEGATIVE 01/02/2017 12:28pm 01/02/2017 12: 33pm Urine Glucose (UA) 3+ A NEGATIVE 01/02/2017 12:28pm 01/02/2017 12: 33pm Urine Ketones 3+ A NEGATIVE 01/02/2017 12:28pm 01/02/2017 12:33pm Urine Urobilinogen 0.2 EU/DL NORMAL 01/02/2017 12:28pm 01/02/2017 12: 33pm Urine Bilirubin NEGATIVE NEGATIVE 01/02/2017 12:28pm 01/02/2017 12: 33pm Urine Blood NEGATIVE NEGATIVE 01/02/2017 12:28pm 01/02/2017 12:33pm Urinalysis Comment MICROSCOPIC NOT IND. 01/02/2017 12:28pm 2016 12:33pm Glucometer 310 mg/dL H 75-110 01/02/2017 2:08pm 01/02/2017 2:10pm Name: VALENTE PETERSON Unit #: [id number] : 1955 Sex: M Admit Date: Loc / Svc: ED Discharge Date: DIAGNOSTIC IMAGING REPORT Report #: [id number] [facility] GABINO Paulino INDICATION: ITS.REASON: mental status change PROCEDURE: CHEST 2-VIEWS UPRIGHT (PA \\T\\ LAT) Encounter: Initial COMPARISON: October 27, 2016 FINDINGS: The lungs are clear without evidence of focal abnormal airspace opacity. There is no pleural effusion or pneumothorax. Probable skin fold seen in the left chest. The heart size, mediastinal contours and pulmonary vascularity are within normal limits. IMPRESSION: No acute cardiopulmonary disease. . Procedures Procedure Status Date Provider(s) Routine venipuncture Completed 10/27/16 Routine venipuncture Completed 10/27/16 Chest x-ray 2vw frontal&latl Completed 10/27/16 Metabolic panel total ca Completed 10/27/16 Comprehen metabolic panel Completed 10/27/16 Lipid panel Completed 10/27/16 Reagent strip/blood glucose Completed 10/27/16 Reagent strip/blood glucose Completed 10/27/16 Reagent strip/blood glucose Completed 10/27/16 Reagent strip/blood glucose Completed 10/27/16 Reagent strip/blood glucose Completed 10/27/16 Reagent strip/blood glucose Completed 10/27/16 Glycosylated hemoglobin test Completed 10/27/16 Assay of magnesium Completed 10/27/16 Assay of troponin quant Completed 10/27/16 Assay of troponin quant Completed 10/27/16 Assay of troponin quant Completed 10/27/16 Complete cbc w/auto diff wbc Completed 10/27/16 Fibrin degradation quant Completed 10/27/16 Prothrombin time Completed 10/27/16 Electrocardiogram tracing Completed 10/27/16 Electrocardiogram tracing Completed 10/27/16 Hydration iv infusion init Completed 10/27/16 Hydrate iv infusion add-on Completed 10/27/16 Hydrate iv infusion add-on Completed 10/27/16 Ther/proph/diag inj sc/im Completed 10/27/16 Ther/proph/diag inj sc/im Completed 10/27/16 Emergency dept visit Completed 10/27/16 Behav chng smoking 3-10 min Completed 10/27/16"HOSPITAL OBSERVATION SERVICE, PER HOUR" Completed 10/27/16"HOSPITAL OBSERVATION SERVICE, PER HOUR" Completed 10/27/16"HOSPITAL OBSERVATION SERVICE, PER HOUR" Completed 10/27/16"HOSPITAL OBSERVATION SERVICE, PER HOUR" Completed 10/27/16"INJECTION, INSULIN, PER 5 UNITS" Completed 10/27/16"INJECTION, INSULIN, PER 5 UNITS" Completed 10/27/16"INJECTION, INSULIN, PER 5 UNITS" Completed 10/27/16"INJECTION, INSULIN, PER 5 UNITS" Completed 10/27/16"INFUSION, NORMAL SALINE SOLUTION , 1000 CC" Completed 10/27/16"INFUSION, NORMAL SALINE SOLUTION , 1000 CC" Completed 10/27/16 Routine venipuncture Completed 10/28/16 Metabolic panel total ca Completed 10/28/16 Reagent strip/blood glucose Completed 10/28/16 Assay of troponin quant Completed 10/28/16 Complete cbc w/auto diff wbc Completed 10/28/16 Electrocardiogram tracing Completed 10/28/16 Hydration iv infusion init Completed 10/28/16 Emergency dept visit Completed 10/28/16"INFUSION, NORMAL SALINE SOLUTION , 1000 CC" Completed 10/28/16 Encounters Encounter Location Arrival/Admit Date Discharge/Depart Date Attending Provider Departed Emergency Room [facility] 01/02/17 10:50am 01/02/17 4: 05pm MURIEL CAMARENA MD Departed Emergency Room [facility] 10/28/16 3:48pm 10/28/16 6: 00pm JOANNE CARMONA DO Discharged Inpatient (obs) [facility] 10/27/16 4:52pm 10/28/16 3: 25pm STEPHANIE MARCEOL MD Recent Diagnosis
[2017-01-02 20:38] VITALS: Ht 177.8 cm; Wt 61.7 kg
--- OUTSIDE RECORDS SUMMARY | 2017-01-02 20:39 | XMS REPORT | Continuity of Care Document ---
Author Author [facility] Organization [facility] Address Unknown Phone Unavailable Allergies Active Description Code Type Severity Reaction Onset Reported/Identified Relationship to Patient Clinical Status Yes No Known Medication Allergies NKMA N/A N/A 09/25/2014 Yes No Known Medication Allergies NKMA N/A N/A 09/25/2014 Yes No Known Allergies No Known Allergies Drug Allergy Unknown N/A 02/26/2015 Yes Seafood egg- containing compound Medium N/A 03/28/2015 Yes Seafood [id number] Medium N/A 03/28/2015 Medications Problems Date Dx [...] Status Pt. Type Provider Facility Loc./Unit Complaint [id number] 02/28/2015 10:35:00 2014 17:08:00 DIS Outpatient Dot RADER, Jimmie Heaton [facility]
--- OUTSIDE RECORDS SUMMARY | 2017-01-02 21:12 | XMS REPORT | Continuity of Care Document ---
Author Author [facility] Organization [facility] Address Unknown Phone Unavailable Allergies Active Description Code Type Severity Reaction Onset Reported/Identified Relationship to Patient Clinical Status Yes No Known Medication Allergies NKMA N/A N/A 09/25/2014 Yes No Known Medication Allergies NKMA N/A N/A 09/25/2014 Yes No Known Allergies No Known Allergies Drug Allergy Unknown N/A 02/26/2015 Yes Seafood egg- containing compound Medium N/A 03/28/2015 Yes Seafood 06201 Medium N/A 03/28/2015 Medications Problems Date Dx [...] Status Pt. Type Provider Facility Loc./Unit Complaint [id number] 02/28/2015 10:35:00 2014 17:08:00 DIS Outpatient Dot RADER, Jimmie Heaton [facility]
[2017-01-02 21:28] LABS: BASOPHILS # (AUTO) 0.1 T/MM3 (0-0.2); BASOPHILS % (AUTO) 0.6 % (0-2); EOSINOPHILS # (AUTO) 0.2 T/MM3 (0-0.5); EOSINOPHILS % (AUTO) 1.6 % (0-4); HCT - HEMATOCRIT 38.7 % (41-53); HGB - HEMOGLOBIN 12.9 GM/DL (13.5-17.5); IMMATURE GRANULOCYTE # (AUTO) 0.04 T/MM3 (0.00-0.03); IMMATURE GRANULOCYTE % (AUTO) 0.3 % (0.0-0.5); LYMPHOCYTES # (AUTO) 1.7 T/MM3 (1-4.8); LYMPHOCYTES % (AUTO) 14.1 % (23-45); MEAN CORPUSCULAR HGB 29.8 UUG (26-34); MEAN CORPUSCULAR HGB CONC(MCHC 33.3 GM/DL (31-37); MEAN CORPUSCULAR VOLUME 89.4 UM3 (80-100); MEAN PLATELET VOLUME 11.7 UM3 (9.4-12.4); MONOCYTES # (AUTO) 0.9 T/MM3 (0-0.8); MONOCYTES % (AUTO) 7.4 % (0-9.0); NEUTROPHILS #(AUTO)-ABSOLUTE 9.3 T/MM3 (1.8-7.7); RED BLOOD COUNT 4.33 M/MM3 (4.50-5.90); WBC - WHITE BLOOD COUNT 12.2 T/MM3 (4.5-11.0)
[2017-01-02 21:33] LABS: ALBUMIN 3.7 G/DL (3.5-5.0); ALBUMIN/GLOBULIN RATIO 1.3 RATIO (1.1-2.2); ALKALINE PHOSPHATASE 106 U/L (38-126); ALT (SGPT) 38 U/L (21-72); ANION GAP 19 MEQ/L (5-15); AST (SGOT) 27 U/L (17-59); BUN/CREATININE RATIO 20 RATIO (6-26); CALCIUM 9.3 MG/DL (8.4-10.2); CHLORIDE 101 MEQ/L (98-107); CO2 - CARBON DIOXIDE 24 MEQ/L (22-30); CREATININE 0.6 MG/DL (0.8-1.5); GLOMERULAR FILTRATION RATE 137; GLUCOSE 389 MG/DL (75-110); LIPASE 685 U/L (23-300); POTASSIUM 4.2 MEQ/L (3.6-5); SODIUM 144 MEQ/L (134-144); TOTAL PROTEIN 6.5 G/DL (6.3-8.2)
[2017-01-02] MEDS ORDERED: INSULIN REGULAR 100 UNIT/ML SQ ONE (21:45)
[2017-01-02] MEDS ORDERED: FENTANYL 100mcg/2ml INJECTION IV ONE (21:45)
[2017-01-02] MEDS ORDERED: ONDANSETRON 4mg/2ml INJECTION IV ONE (21:45)
--- NOTE | 2017-01-02 21:46 | ERPDOC ---
Departure Disposition Decision Date: Jan 02, 2017 Disposition Decision Time: 22:46 Disposition: 01 DISCHARGED HOME, SELF-CARE Impression Impression Impression: Primary Impression: Chronic pancreatitis Pancreatitis type: unspecified pancreatitis type Qualified Codes: K86.1 - Other chronic pancreatitis Additional Impression: Hyperglycemia Severity: Moderate Condition: Improved Seen By: Physician only Referrals: [facility] 2 Days Patient Instructions: Diabetic Hyperglycemia (ED), Pancreatitis (ED) Problems/Meds/Labs Reviewed?: Yes Medications reviewed and manag: Yes Follow up care ordered?: Yes Mental Status: Alert, Oriented Scripts Ondansetron (Zofran Odt) 4 Mg Tab.rapdis 4 MG PO Q4HR Y for NAUSEA &/OR VOMITING for 3 Days, #18 TAB 0 Refills Prov: MICHAEL DE LOS SANTOS DO 01/02/17 Oxycodone HCl/Acetaminophen (Percocet 5-325 mg Tablet) 5-325 Tablet 1 TAB PO Q4HR Y for PAIN for 3 Days, #18 TAB 0 Refills Prov: MICHAEL DE LOS ASNTOS DO 01/02/17 HPI - General Medical General Chief Complaint: Abdominal Pain Stated Complaint: ABD PAIN Time Seen by Provider: 20:55 Source: patient, EMS Exam Limitations: no limitations HPI - General Medical Initial Comments 61-year-old male presents to emergency department with a chief complaint of abdominal pain. Patient has a history of chronic pancreatitis. Patient noted onset of symptoms one day ago. Patient was seen and evaluated earlier in the emergency department today. He was discharged home in improved condition at that time. Patient returns because the epigastric abdominal pain has returned. There is no radiation. Pain is moderate. Pain sharp. Patient does not note any other exacerbating or remitting factors. Patient denies any trauma, travel , poorly prepared food, or recent antibiotic use. Patient states this is a typical exacerbation of his chronic pancreatitis. He denies alcohol use. No other complaints or associated symptoms. Occurred At: home Onset: Gradual Allergies: Coded Allergies: No Known Drug Allergies (Verified Allergy, Unknown, 01/02/17) Past History Patient Surgical History 1. Umbilical hernia 2. Tonsillectomy 3. Partial pancreatectomy and splenectomy 2 years ago Past Medical History Metabolic: diabetes GI: pancreatitis Surgical History General: appendix Family History Family History: Negative Vaccines Hx Influenza Vaccination: No (NOT THIS YEAR) Hx Pneumococcal Vaccination: No Social History Smoking Status: Former smoker Substance Use Type: does not use Alcohol Intake: none Marital Status: Number of Children: 4 Current Occupational Status: employed Review of Systems Constitutional Constitutional: DENIES: chills, fever Eyes General: DENIES: erythema, exudate Lids/Accessories: DENIES: erythema, swelling Vision: DENIES: acuity, blurring ENMT Ears: DENIES: drainage, erythema Hearing: DENIES: hearing loss Balance: DENIES: ataxia, falling to one side Sinuses: DENIES: congestion, pain Nose: DENIES: nosebleeds, pain Mouth/Throat: DENIES: painful swallowing, sore throat Teeth: DENIES: pain Jaw: DENIES: pain Cardiovascular Cardiac: DENIES: chest pain, dyspnea on exertion, orthopnea Rhythm/Rate: DENIES: irregular beat, palpitations Vascular: DENIES: pedal edema, unilateral swelling Pulmonary Respiratory: DENIES: cough, dyspnea, pleuritic chest pain, sputum, tachypnea GI Upper Abdomen: pain, DENIES: nausea, vomiting Lower Abdomen: DENIES: diarrhea, pain General: DENIES: dysuria, frequency Musculoskeletal General: DENIES: joint pain, tenderness Integumentary Skin: DENIES: itching, rash Neurological General: DENIES: headache, numbness, weakness Psychiatric Psychiatric: DENIES: emotional instability, suicidal ideation/attempt Endocrine Endocrine: DENIES: polydipsia, polyphagia Hematologic/Lymphatic Hematologic/Lymphatic: DENIES: frequent nosebleeds, lymphadenopathy Allergic/Immunological Allergic/Immunoligical: DENIES: allergic reactions, hives Physical Exam General General Nourishment: well nourished, well developed, appears stated age, no acute distress, adult General Body Habitus: well groomed Vitals and Pain First Documented Vital Signs Date Time Temp Pulse Resp B/P Pulse Ox O2 Delivery O2 Flow Rate FiO2 01/02/17 20:38 98.7 62 16 145/67 98 Room Air Weight: Kilograms: 61.700 Height (feet): 5 Height (inches): 10.00 Triage Pain Scale: RN VS reviewed by Provider: Yes Normal Exams: Head: Normocephalic w/o trauma Eyes: Pupils are PERRLA w/ EOMI, No scleral icterus, irritation, or foreign bodies noted ENMT: No facial trauma, nasal exudates, pharyngeal erythema, or exudates are noted Dental: No fractured, loose, or missing teeth noted Neck: Full range of motion, without adenopathy, JVD, bruits or thyromegaly Chest/Resp: Clear all [place], with good airflow, and symmetry bilaterally CV: Regular rate and rhythm, without murmur or gallop, Pulses 2+ all extremities, capillary refill, <2 seconds all ext., no pedal edema noted Lymphatic: No lymphadenopathy, or lymphedema noted Musculoskeletal: No tenderness, or deformity noted, good range of motion, all extremities Integumentary: No rashes, hives, or bruising noted, hair and nails, without abnormality Neurologic: Patient is alert, and oriented, cranial nerves, motor/sensory/ cerebellar, exams w/o gross deficits, to observation Psychiatric: Patient exhibits, appropriate attention, emotion and affect Abdomen (brief) Comments ABD - Soft. Mild epigastric tenderness to palpation. No CVA tenderness. No rebound or guarding. No peritoneal signs. No distention. Bowel sounds active in all 4 quadrants. Differential Diagnoses Considering: Medication Effect, Metabolic, Other (chronic pancreatitis/UTI/) Progress Results/Orders Orders Procedure Category Date Status Time Cbc W/Auto LAB 01/02/17 Complete Diff-Reflex Manual Cmp - Comprehensive LAB 01/02/17 Complete Metabolic Lipase LAB 01/02/17 Complete Ua, Dip Wreflex LAB 01/02/17 Complete [employer] 20:58 EKG EKG 01/02/17 Taken Ondansetron Inj PHA 01/02/17 Complete (Zofran) 21:45 Fentanyl (Fentanyl) PHA 01/02/17 Complete 21:45 Insulin Regular PHA 01/02/17 Complete (Novolin R) 21:45 Troponin I W LAB 01/02/17 Complete Hemolysis Index Oxycodone/Apap 5/325 PHA 01/02/17 Complete (Prepack) (Percocet 23:00 Lab Results Laboratory Tests Test 01/02/17 21:10 01/02/17 21:50 01/02/17 22:18 White Blood Count 12.2T/MM3 Red Blood Count 4.33M/MM3 Hemoglobin 12.9GM/DL Hematocrit 38.7% Mean Corpuscular Volume 89.4UM3 Mean Corpuscular Hemoglobin 29.8UUG Mean Corpuscular Hemoglobin Concent 33.3GM/DL RDW Standard Deviation 51.0FL Platelet Count 372T/MM3 Mean Platelet Volume 11.7UM3 Immature Granulocyte % (Auto) 0.3% Neutrophils (%) (Auto) 76.0% Lymphocytes (%) (Auto) 14.1% Monocytes (%) (Auto) 7.4% Eosinophils (%) (Auto) 1.6% Basophils (%) (Auto) 0.6% Absolute Immature Granulocyte (auto 0.04T/MM3 Absolute Neutrophils (auto) 9.3T/MM3 Absolute Lymphocytes (auto) 1.7T/MM3 Absolute Monocytes (auto) 0.9T/MM3 Absolute Eosinophils (auto) 0.2T/MM3 Absolute Basophils (auto) 0.1T/MM3 Turbidity < 20 Sodium Level 144MEQ/L Potassium Level 4.2MEQ/L Chloride Level 101MEQ/L Carbon Dioxide Level 24MEQ/L Anion Gap 19MEQ/L Blood Urea Nitrogen 12.0MG/DL Creatinine 0.6MG/DL Glomerular Filtration Rate Calc 137 BUN/Creatinine Ratio 20RATIO Glucose Level 389MG/DL Calculated Osmolality 293MOSM/KG Calcium Level 9.3MG/DL Total Bilirubin 0.60MG/DL Icterus Index < 2 Aspartate Amino Transf (AST/SGOT) 27U/L Alanine Aminotransferase (ALT/SGPT) 38U/L Alkaline Phosphatase 106U/L Troponin I < 0.012ng/ml Total Protein 6.5G/DL Albumin 3.7G/DL Globulin 2.8G/DL Albumin/Globulin Ratio 1.3RATIO Lipase 685U/L Chemistry Specimen Hemolysis 20 Glucometer 300mg/dL Urine Collection Type Cleancatch-midstream Urine Color Yellow Urine Turbidity Clear Urine pH 6.0 Urine Specific [place] 1.015 Urine Protein Negative Urine Glucose (UA) 3+ Urine Ketones 2+ Urine Blood Negative Urine Nitrite Negative Urine Bilirubin Negative Urine Urobilinogen 0.2EU/DL Urine Leukocyte Esterase Negative Urinalysis Comment Microscopic not ind. Medications Current ED Medications Ondansetron HCl (Zofran) 4 mg O ONCE IV Last administered on 01/02/17 21:54; Start 01/02/17 at 21:45; Stop 01/02/17 at 21:46; Status DC Fentanyl (Fentanyl) 50 mcg O ONCE IV Last administered on 01/02/17 21:51; Start 01/02/17 at 21:45; Stop 01/02/17 at 21:46; Status DC Insulin Human Regular (Novolin R) 4 unit O ONCE SQ Last administered on 21:50; Start 01/02/17 at 21:45; Stop 01/02/17 at 21:46; Status DC Oxycodone/ Acetaminophen (Percocet 5 (Prepack)) 1 pack O ONCE SENT HOME Last administered on 01/02/17 23:00; Start 01/02/17 at 23:00; Stop 01/02/17 at 23:01 ; Status DC Progress Progress Labs / imaging were discussed in detail with the patient and questions are answered. Patient is given IV hydration. Patient is given 2 units of subcutaneous insulin times one. Patient is given parental narcotic and antiemetic medications intravenously with improvement of symptoms. Patient is offered admission to the hospital which he declines. Patient is discharged home in improved condition in accordance with his wishes. Patient is to follow up as instructed. Patient is to return to the emergency department if his condition worsens or changes in any manner. Patient is counseled regarding the appropriate diet for chronic pancreatitis. Patient is provided with a Percocet pre-pack. Prescriptions for Percocet and Zofran are provided. [facility] He is to return to the emergency department if his condition worsens or changes in any manner. Patient is counseled regarding the importance of compliance with his diabetic medication regimen. He verbalizes agreement and understanding. CT Scan ABD/PELVIS and CXR from earlier today are reviewed. EKG EKG : Rate: <60 Rhythm: sinus [place]: normal QRS: normal Intervals: normal ST/T: normal Interpreted by: signing physician MICHAEL DE LOS SANTOS DO Jan 02, 2017 21:46
[2017-01-02 22:21] LABS: BLOOD, URINE NEGATIVE (NEGATIVE); COLOR,URINE YELLOW (YELLOW); LEUKOCYTE ESTERASE ,URINE NEGATIVE (NEGATIVE); NITRITE,URINE NEGATIVE (NEGATIVE); UROBILINOGEN,URINE 0.2 EU/DL (NORMAL)
--- NOTE | 2017-01-02 22:36 | NUR ---
PROVIDER DR DE LOS SANTOS IN TO SEE PATIENT.
[2017-01-02] MEDS ORDERED: ONDA4TAB7 PO (22:48)
[2017-01-02] MEDS ORDERED: OXYC1TAB8 PO (22:48)
[2017-01-02] MEDS ORDERED: OXYCODONE/APAP 5/325 (Prepack) SENT HOME ONE (23:00)
[2017-01-02 23:08] VITALS: BP 154/65; PULSE 59; RESP 17; TEMP 98.7; O2SAT 96
== END 2017-01-02 23:08 | disposition home or self-care (01) ==
LOC: ED 20:32
DX: K86.1 Other chronic pancreatitis (principal); E11.65 Type 2 diabetes mellitus with hyperglycemia; Z79.4 Long term (current) use of insulin
CPT/HCPCS: 80053; 81003; 82948; 83690; 84484; 85025; 93005; 96372; 96374; 96375; 99284; J1815; J2405; J3010